=== PATIENT | female | born 1965 | race Caucasian/White ===

== ENCOUNTER 2017-07-11 14:29 | Outpatient (RCR) | payer SELFPAY | END 2017-08-04 | disposition home or self-care (01) | LOC: WCC 14:29 | DX: R53.82 Chronic fatigue, unspecified (principal); E03.9 Hypothyroidism, unspecified; M19.90 Unspecified osteoarthritis, unspecified site; M86.9 Osteomyelitis, unspecified; A69.20 Lyme disease, unspecified; Z98.82 Breast implant status | CPT/HCPCS: G0277 ×4 ==